=== PATIENT | male | born 1970 | race Caucasian/White ===

== ENCOUNTER 2018-08-10 21:23 | Emergency (ER) | payer BC ==
[~2018-08-10] VITALS: Ht 188 cm; Wt 102.1 kg
[2018-08-10] MEDS ORDERED: METFORMIN HYDRO25 GM (21:47)
== END 2018-08-10 23:08 | disposition home or self-care (01) ==
LOC: ER 21:23
DX: S81.812A Laceration without foreign body, left lower leg, initial encounter (principal); W25.XXXA Contact with sharp glass, initial encounter; Y93.89 Activity, other specified; Y92.89 Other specified places as the place of occurrence of the external cause; Y99.8 Other external cause status